=== PATIENT | female | born 1980 | race Caucasian/White ===

== ENCOUNTER 2016-09-30 06:30 | Day surgery (SDC) | payer OTHER ==
[2016-09-30] VITALS (12 sets, daily range): BP systolic 109–138; BP diastolic 66–93; PULSE 55–75; RESP 12–16; O2SAT 88–100
[~2016-09-30] VITALS: Ht 182.9 cm; Wt 113.8 kg
[2016-09-30] MEDS: Lactated Ringer's 1,000 ML IV SCH ×3 (06:24→11:44)
[~2016-09-30 06:30] MED LIST: ALPR0.5T PO; ATEN50TA PO; CeFAZolin Inj 2 GM in IV Premix 1 EACH IV ONE; ESOM40CA41 PO; FLUO40CA12 PO; IBUP-1827 PO; LOSA50TA3 PO; RIZA10TA23 PO; TRAZ-115 PO
[2016-09-30] MEDS ORDERED: HYDROmorphone 2 mg/mL Inj ONE (06:31)
[2016-09-30] MEDS ORDERED: Dexamethasone 4 mg/mL Inj ONE (06:31)
[2016-09-30] MEDS ORDERED: fentaNYL-PF 50 mCg/mL 2 mL Inj ONE (06:31)
[2016-09-30] MEDS ORDERED: Propofol 10,000 mCg/mL 20 mL Inj ONE (06:31)
[2016-09-30] MEDS ORDERED: Ondansetron 2 mg/mL 2 mL Inj ONE (06:31)
[2016-09-30] MEDS ORDERED: Lactated Ringer's 1,000 ML IV SCH (08:58)
[2016-09-30] MEDS ORDERED: Lactated Ringer's 500 ML IV PRN (08:58)
[2016-09-30] MEDS ORDERED: Phenylephrine 10,000 mCg/mL Inj IVPUSH PRN (09:00)
[2016-09-30] MEDS ORDERED: Dexamethasone 4 mg/mL Inj IVPUSH PRN (09:00)
[2016-09-30] MEDS ORDERED: fentaNYL-PF 50 mCg/mL 2 mL Inj IVPUSH PRN (09:00)
[2016-09-30] MEDS ORDERED: EPHEDrine Sulfate 50 mg/mL Inj IVPUSH PRN (09:00)
[2016-09-30] MEDS ORDERED: MetoCLOpramide 5 mg/mL 2 mL Inj IVPUSH PRN (09:00)
[2016-09-30] MEDS ORDERED: Ondansetron 2 mg/mL 2 mL Inj IVPUSH PRN (09:00)
--- NOTE | 2016-09-30 09:00 | PCM.HPANE ---
Patient Data Surgeon Admitting Provider: Attending Provider:Jim Willis MD Primary Care Physician:Denis Other Provider:Jenny Roman Anesthesia Reason for Visit Localized Adiposity, Localized Swelling, Mass Ht/WT & BMI Height (Feet): 6 Height (Inches): 0.00 Weight (Kilograms): 113.8 Body Mass Index 33.00 Allergies Coded Allergies: codeine (Verified Adverse Reaction, Severe, SEVERE MIGRAINE HEADACHE, ) lisinopril (Verified Adverse Reaction, Severe, COUGH, 09/29/16) morphine (Verified Adverse Reaction, Severe, DRUG DOES NOT WORK, 09/29/16) Past Anesthesia History Anesthesia History: Denies:: Anesthesia Reactions, Malignant Hyperthermia Diabetes History Hx Diabetes?: No MRSA MRSA: No Medications Hypertension Medication: Yes (COZAAR) Home Meds Incl Beta Perri: Yes (Atenolol 50mg) Date Beta Perri Taken: Sep 30, 2016 Time Beta Perri Taken: 0430 Reported Medications Losartan Potassium (Cozaar)50 Mg Aoqxst20 Mg PO DAILY 09/29/16 Esomeprazole Magnesium (Nexium)40 Mg Capsule.dr40 Mg PO DAILY Ref 0 09/29/16 Alprazolam (Xanax)0.5 Mg Tablet0.5 Mg PO TID PRN For Anxiety Ref 0 09/29/16 Trazodone 50 Mg Eqzoss76 Mg PO HS Ref 0 09/29/16 Fluoxetine (Prozac)40 Mg Tkrijkl88 Mg PO DAILY Ref 0 09/29/16 Rizatriptan ODT (Maxalt PRINCIPAL TECHNICAL SPECIALIST)10 Mg Brpiyk56 Mg PO PRN MR IN 2 HRS PRN 09/29/16 Ibuprofen 600 Mg Pwmtgq342 Mg PO QID PRN For Pain Ref 0 09/29/16 Atenolol 50 Mg Fzuasw90 Mg PO DAILY #30 TABLET Ref 0 09/29/16 History History of ENT Problems?: No Hx of Heart Problems?: Yes Cardiovascular History: Positive for:: Hypertension Denies:: Heart Murmur Hx of Respiratory Problem?: No Respiratory History: Denies:: Use of C-PAP Machine Hx Neurologic Problems?: Yes Neurological History: Positive for:: Headaches Hx of GI Problems?: Yes Gastrointestinal History: Positive for:: Gastroesphageal Reflux Other GI Pertinent History: LOCALIZED ADIPOSITY/ABD WALL MASS=CURRENT PROBLEM Hx of Problems?: No Female Hx: Denies:: Currently Skin History: Denies:: History Skin Disorders? Pressure Ulcers Hx Musculoskeletal Problems?: No Hx of Psycho/Social Problems?: Yes Psycho Social History: Positive for:: Anxiety (PTSD) Hx Depression Hx Surgeries?: Yes (C/S X3,VELIA/RSO) Hx Any Other Health Problems?: Yes Other History: Denies:: Cancer Endocrine Disease Hospitalization Thyroid Disease Hx Diabetes: No Have You Smoked inLast 12 mo: No Stop/Bang S-Snoring: Do You Snore Loudly: No T-Tired: feel tired, fatigued: No O-Obsered: Observed not breath: No P-Blood Pressure: treated: Yes B- Body Mass Index > 35 kg/m2: No A- Age over 50: No N- Neck Large Circumference: Yes G- Gender Male: No FERNANDO Total Score: 2 Risk Assessment Category Category 1A: Patient has history of documented sleep apnea, and HAS NOT received any narcotic, sedative or anesthesia administration during this stay. Category 1B: Patient has history of documented sleep apnea, and HAS received any narcotic , sedative or anesthesia administration during this stay Category 2: Patient has SUSPECTED Obstructive Sleep Apnea, and HAS received any narcotic , sedative or anesthesia administration during this stay. Category 3: Patient has SUSPECTED Obstructive Sleep Apnea and HAS NOT received narcotic, sedative or anesthesia administration during this stay. Category 4: Outpatient in Procedural Areas with known sleep apnea or who screen positive for High Risk via the STOP/BANG questionnaire. Exam Exam Vital Signs Vital Signs Date Time Temp Pulse Resp B/P Pulse Ox O2 Delivery O2 Flow Rate FiO2 09/30/16 07:02 CPAP/BIPAP 09/30/16 07:01 36.0 64 16 138/93 97 Room Air General Appearance: Alert, Oriented X3, Cooperative HEENT/AIRWAY: MP 2 Lungs: Normal Air Movement Heart: Exam Unremarkable Meds/Labs/Diagnostics Admission Meds Current Medications Lactated Ringer's (Lr) 1,000 ml @ 120 mls/hr Q8H20M IV Last administered on t 06:24; Start 09/30/16 at 05:00; Stop 09/30/16 at 13:19 Plan Impression Patient chart reviewed, patient interviewed and anesthestic plan with risks, benefits, and alternatives discussed, and informed consent obtained. NPO Status: 09/29 at 1900 ASA Physical Status: ASA2 Mod Systemic Disease Anesthetic Plan: GA Bene/Risks/Altern/Consents: Yes HP Complete Prior to Induction: Yes Travis Mao MD Sep 30, 2016 09:00
[2016-09-30] MEDS ORDERED: Bupivacaine-MPF 0.5% W/EPI 30 mL Inj INFILTRATE ONE (09:20)
[2016-09-30] MEDS ORDERED: Lactated Ringer's 1,000 ML IV ONE (09:43)
--- NOTE | 2016-09-30 10:21 | PCM.SURGPO ---
Immediate Operative Note Date of Surgery: Sep 30, 2016 Pre Operative Diagnosis Abdominal wall mass, possible incisional Endometrioma Post Operative Diagnosis Abdominal wall mass, possible incisional Endometrioma Procedure Resection of Abdominal wall (Rectus sheath/ preperitoneal) mass [id number] Surgeon and Beer Cooler Surgeon: Brandon Merida MD Assistants: Laureen Mora PAC Findings [id number] hard mass close to the midline deep to anterior rectus sheath Complications There were no periprocedural complications identified. Surgical Specimen Removed: Yes Specimen sent to Pathology: Yes Anesthetic Administered: GA Grafts, Implants: None Output, Estimated Blood Loss: 0 Blood Admin during surgery: No Attending Statement Html Web Developer listed was medically necessary for the successful completion of the case Brandon Merida MD Sep 30, 2016 10:21
[2016-09-30] MEDS ORDERED: oxyCODONE-Acetamin 5-325 mg Tablet PO PRN (11:00)
--- NOTE | 2016-09-30 12:09 | PCM.ANEP1 ---
Post Anesthesia Phase 1 PACU Phase 1 Assessment Date of Service: Sep 30, 2016 Vital Signs Vital Signs Date Time Temp Pulse Resp B/P Pulse Ox O2 Delivery O2 Flow Rate FiO2 09/30/16 12:00 62 13 115/71 95 Room Air 09/30/16 11:59 36.1 74 16 115/71 93 Room Air 09/30/16 11:55 68 14 112/76 100 Simple Mask 8 09/30/16 11:50 36.8 62 13 109/71 99 Simple Mask 10 09/30/16 11:41 60 12 114/76 99 Simple Mask 10 09/30/16 11:36 59 12 116/72 99 Simple Mask 09/30/16 11:34 59 13 111/68 98 Simple Mask 10 09/30/16 11:27 55 13 112/66 95 Simple Mask 10 09/30/16 11:20 58 16 115/81 96 Nasal Cannula 4 09/30/16 11:15 36 58 15 127/72 88 Room Air 09/30/16 07:02 CPAP/BIPAP 09/30/16 07:01 36.0 64 16 138/93 97 Room Air Anesthetic Administered: GA Level of Alertness: Awake, talking BRUNSON's with Equal Strength: Yes Pain: No Nausea or Vomiting: Yes Airway Device: Endotrachial Tube Oxygen Delivery: Room Air, Nasal Cannula Lungs: Normal Air Movement Dermatome Level: Full Sensation Travis Mao MD Sep 30, 2016 12:09
--- NOTE | 2016-09-30 12:09 | PCM.ANEP2 ---
Post Anesthesia Evaluation ASA/CMS Post Anesthesia VS in Patient's Normal Range?: Yes Resp Stable; Airway Patent?: Yes CV Function & Hydration Stable: Yes Mental Status Recovered?: Yes Pain control Satisfactory?: Yes N/V Control Satisfactory?: Yes Travis Mao MD Sep 30, 2016 12:09
--- NOTE | 2016-09-30 16:25 | OP ---
[address] [address] OPERATIVE REPORT PATIENT: SHYANNE PEÑA : 1980 MR#: [id number] ADMIT: 09/30/2016 JOB ID: [id number] DATE OF SURGERY: 09/30/2016 PREOPERATIVE DIAGNOSIS(ES): Abdominal wall mass, possible endometrioma. POSTOPERATIVE DIAGNOSIS(ES): Abdominal wall mass, possible endometrioma. PROCEDURE PERFORMED: Resection of abdominal wall mass measuring 6 x 3 x 3 cm deep to the anterior rectus sheath. SURGEON: Brandon Merida MD. SHAREPOINT CONSULTANT: Maria Antonia Mora PA-C INDICATIONS: The patient is a 36-year-old lady who had an abdominal hysterectomy through a Pfannenstiel incision in 2012 for dysfunctional uterine bleeding and family history of malignancy. Pathology at that time did not show any evidence of malignancy but she was having a lot of postoperative pain and eventually got better. Sometime in early 2014 she started noticing left-sided abdominal wall pain which she initially thought was cyclical. She recently had a CT and then had a core biopsy of this abdominal wall mass and was told she likely had under an endometrioma. By the time I met her in August of this year, she had no cyclical pain but she continued to have discomfort prompting her to see me and Dr. Willis. After discussing the risks, benefits, and alternatives, she is here today for a panniculectomy by Dr. Willis and dissection of the abdominal wall mass by me. PROCEDURE DETAILS: Dr. iWllis began the operation by raising the abdominal wall pannus off the anterior rectus sheath and the oblique muscle layers at which point he handed over the operation to me. There was an approximately 5-6 cm vertically oriented mass close to the midline deep to the abdominal wall fascia. I began by incising the anterior rectus sheath superior to this mass and lifted the rectus sheath away from the mass with sharp dissection and this mass was directly stuck to both the rectus abdominis muscles on the right and left which attachments were taken down sharply. Posteriorly it was in contact with adhesions to the preperitoneal fat, but there did not appear to be any invasion into the peritoneal cavity. So all these attachments were taken down sharply with electrocautery getting good hemostasis and once I resected the mass, I orientated it with a stitch superiorly and anteriorly and then closed the fascial defect with running 0 PDS suture. I interspersed with interrupted 0 PDS sutures. After ensuring good hemostasis, I turned the case back over to Dr. Willis who proceeded to finish his panniculectomy. Please refer to his dictation for further operative details.
--- NOTE | 2016-10-02 19:22 | OP ---
[address] [address] OPERATIVE REPORT PATIENT: SHYANNE PEÑA : 1980 MR#: [id number] ADMIT: 09/30/2016 JOB ID: [id number] DATE OF SURGERY: 09/30/2016 PREOPERATIVE DIAGNOSIS(ES): Abdominal pannus. POSTOPERATIVE DIAGNOSIS(ES): Abdominal pannus. PROCEDURE: Abdominal panniculectomy. SURGEON: Jim Willis MD PIN MACHINE OPERATOR: Maria Antonia Mora PA-C, who was present and necessary for retraction, exposure, and closure of the incisions. ANESTHESIA: General anesthesia. ESTIMATED BLOOD LOSS: 20 mL. COMPLICATIONS: None apparent. SPECIMEN: Abdominal pannus to Pathology. INDICATIONS FOR PROCEDURE: This is a 36-year-old female patient with a significant abdominal pannus. The patient also has an abdominal wall mass. The patient was scheduled to undergo excision of the abdominal wall mass. A concurrent panniculectomy is indicated to remove the excess lower abdominal tissue and for symptom relief. PROCEDURE AND FINDINGS: The patient was identified in the preoperative area and the surgical site was marked. I then marked the border of patient's under garments to guide in placing the lower abdominal incision. The patient was then taken back to the operating room and placed supine on the operating table. Appropriate time-outs were taken. General anesthesia was induced smoothly. I then marked the lower abdominal incision. I included her previous scar into the desired incision. The incision was designed close to the lower border of her undergarment to prevent of visibility of the incision. The patient was then prepped and draped in the usual sterile manner. An incision was then made along the previously marked line with a #10 blade. I then deepened the incision down to the underlying abdominal fascia. Centrally, there was quite a bit of scar tissue from her scar and from prior hysterectomy scar. The scar was carefully elevated off of the abdominal fascia. I then elevated the abdominal tissue off of the rectus fascia to approximately 1 inch inferior to the umbilical stalk. Hemostasis was obtained with electrocautery. At this point, Dr. Merida presented to complete his portion of the procedure, to excise the abdominal mass within the rectus sheath. Once he had completed his procedure, I presented back to the operating room. It was noted that the fascial defect was repaired by Dr. Merida. At this point excess abdominal tissue was marked with the lower abdominal tissue under downward and medial stretch. Once the excess tissue had been marked, an incision was made along the marked line with a #10 blade. I then divided the excess abdominal tissue with electrocautery. A drain was then placed into the surgical site, exiting on the right lateral end of the abdominal incision. The incision was then reapproximated, first with a layer of 3-0 Vicryl pcrwrd-[id number] suture reapproximating the Zunilda's fascia. A layer of 3-0 Monocryl deep dermal suture was then followed by 4-0 Monocryl running subcuticular suture. The patient tolerated the procedure well. Needle count, sponge count, and instrument counts were correct at the end of the procedure. The patient was extubated and transported to recovery in stable condition. The excess abdominal tissue was passed off to Pathology as a specimen. AISLINN
--- NOTE | 2016-10-05 15:13 | PATH ---
SURGICAL PATHOLOGY Attending Physician:Jim Willis CASE STATUS: Signed Out PATIENT NAME: SHYANNE PEÑA PID: [id number] : 1980 DATE COLLECTED:09/30/2016 20:59 SPECIMEN: 1: Skin, biopsy 2: Mass, NOS CLINICAL HISTORY: LOCALIZED ADIPOSITY, LOCALIZED SWELLING, MASS 1). ABDOMINAL PANNUS 2). RECTUS SHEATH/PERITONEAL MASS-SHORT STITICH SUPERIOR, LONG STITCH ANTERIOR FINAL DIAGNOSIS: 1.ABDOMINAL PANNUS: SKIN AND SUBCUTANEOUS TISSUE WITH NO PATHOLOGIC ABNORMALITIES. 2.RECTUS SHEATH/PERITONEAL MASS: ENDOMETRIOSIS. NO EVIDENCE OF MALIGNANCY. ICD10 CODE N80.9 GROSS DESCRIPTION: The specimens are received in formalin, labeled with the patient's name, and sublabeled as the following: (1) abdominal pannus; (2) rectus sheath/pre-peritoneal mass, short stitch superior/long-interior. (1) The specimen consists of multiple pieces of adipose tissue covered by skin (1373 g, 36.2 x 17.5 x 6.5 cm in aggregate). The adipose tissue is matthew-yellow lobular and homogenous. The skin is matthew-pink smooth and shiny. The nodules, masses or lesions are identified. Section code: (1A, 1B) adipose tissue with skin, technical sales representative. (2) The specimen consists of an oriented matthew-yellow firm rubbery mass (1.9 cm in AP, 4.9 cm SI, 2.8 cm ML) with no overlying skin. The specimen is oriented with 2 black sutures (short-superior, long-anterior). The cut surface is matthew-yellow with a bright white lacy appearance with focal hemorrhaging. Ink code: purple-anterior; yellow-posterior; black-superior; orange-inferior; green-medial; blue-lateral. Section code: (2A) superior resection margin, perpendicular resection, entirely submitted; (2B-2E) mass, serially sectioned and submitted SI, technical sales representative; (2F) inferior resection margin, perpendicularly sectioned, entirely submitted. 10/03/16 JM MICRO DESCRIPTION: See diagnosis. ICD-9 CODES: CPT CODES: 1: 09309 2: 17142 Electronically Signed Out Raf Fajardo MD [facility] Pathology [facility] [address], [place] [address] Technical component performed at [facility], [address], [place], [address]
== END 2016-09-30 23:59 | disposition home or self-care (01) ==
LOC: SAS 06:30
PROVIDERS: ATTEND Plastic Surgery
DX: E65 Localized adiposity (principal); R19.09 Other intra-abdominal and pelvic swelling, mass and lump; I10 Essential (primary) hypertension; K21.9 Gastro-esophageal reflux disease without esophagitis; F43.10 Post-traumatic stress disorder, unspecified; F41.9 Anxiety disorder, unspecified; F32.9 Major depressive disorder, single episode, unspecified; Z87.891 Personal history of nicotine dependence
CPT/HCPCS: 15830; 22903; J0690; J1100; J1170; J1200; J2250; J2405; J2765; J3010; J7120